=== PATIENT | female | born 1995 | race Caucasian/White ===

== ENCOUNTER 2025-01-14 16:25 | Emergency (ER) | payer OTHER ==
[~2025-01-14] VITALS: Ht 165.1 cm; Wt 99.8 kg
[2025-01-14 16:54] LABS: BASOPHILS ABSOLUTE AUTO 0.02 K/mm3 (0.00-0.23); BASOPHILS PERCENT AUTO 1 % (0-2); EOSINOPHILS ABSOLUTE AUTO 0.13 K/mm3 (0.00-0.68); EOSINOPHILS PERCENT AUTO 3 % (0-6); Hematocrit 36.6 % (33.0-51.0); Hemoglobin 12.3 g/dL (11.5-16.0); IMMATURE GRAN ABSOLUTE AUTO 0.01 K/mm3 (0.00-0.10); IMMATURE GRAN PERCENT AUTO 0 % (0-1); LYMPHOCYTES ABSOLUTE AUTO 1.68 K/mm3 (0.84-5.20); LYMPHOCYTES PERCENT AUTO 41 % (21-46); MONOCYTES ABSOLUTE AUTO 0.40 K/mm3 (0.16-1.47); MONOCYTES PERCENT AUTO 10 % (4-13); Mean Corpuscular HGB Conc 33.6 g/dL (31.5-36.5); Mean Corpuscular Volume 85 fL (80-100); NEUTROPHILS ABSOLUTE AUTO 1.87 K/mm3 (1.96-9.15); NEUTROPHILS PERCENT AUTO 46 % (41-73); NRBC ABSOLUTE 0.00 K/mm3 (0.00-0.02); NRBC Auto 0.0 /100 WBC (0.0-0.2); Platelet Count 297 K/mm3 (150-400); RDW Coefficient Variation 13.2 % (11.7-14.2); RDW Standard Deviation 41.6 fL (35.1-46.3)
[2025-01-14 17:09] LABS: Alanine Aminotransfer (ALT/SGP 27.0 U/L (12-78); Albumin, Blood 3.8 g/dL (3.4-5.0); Albumin/Globulin Ratio 0.8 (0.8-1.8); Anion Gap 7.0 mmol/L (3-11); Aspartate Aminotrans (AST/SGOT 20.0 U/L (12-37); Bilirubin, Total 0.3 mg/dL (0.1-1.0); Blood Urea Nitrogen 9.0 mg/dL (8-24); CO2, Blood 26.0 mmol/L (21-32); Calcium, Blood 9.5 mg/dL (8.5-10.1); Chloride, Blood 105.0 mmol/L (98-108); Creatinine, Blood 0.61 mg/dL (0.40-1.00); Globulin, Blood 4.7 g/dL (2.2-4.0); Glucose, Blood 89.0 mg/dL (70-99); Potassium, Blood 3.8 mmol/L (3.5-5.5); Sodium, Blood 134.0 mmol/L (136-145); Total Protein, Blood 8.5 g/dL (6.4-8.2)
[2025-01-14] MEDS ORDERED: Ketorolac Tromethamine 15mg Vial IV ONE (18:10)
[2025-01-14] MEDS ORDERED: NS 1,000 ML IV SCH (18:10)
== END 2025-01-14 20:50 | disposition home or self-care (01) ==
LOC: ER 16:25
PROVIDERS: Physician Assistant
DX: K76.9 Liver disease, unspecified (principal); R91.1 Solitary pulmonary nodule; J45.909 Unspecified asthma, uncomplicated; K21.9 Gastro-esophageal reflux disease without esophagitis; Z88.7 Allergy status to serum and vaccine
CPT/HCPCS: 71046; 71260; 80053; 83735; 84484; 85025; 85379; 93005; 93010; 96374; 99284-25; J1885; J7030; Q9967

== ENCOUNTER → 2025-02-01 | Outpatient (CLI) | payer OTHER ==
[2025-02-01 20:35] LABS: Bilirubin, Urine Neg (Neg); Glucose Qualitative, Urine Neg (Neg); Ketones, Urine 1+ (Neg); Leukocyte Esterase, Urine Neg (Neg); Protein, Urine Neg (Neg); Specific Gravity, Urine 1.010 (1.003-1.022); Urobilinogen, Urine NORM (Normal)
[2025-02-01 20:36] LABS: Color, Urine Yellow (P-Yellow)
[2025-02-01 21:01] LABS: Creatinine, Urine Random 79.1 mg/dL (27.00-270.00); Protein, Urine Random 8.2 mg/dL (0.0-11.9); Protein/Creat Ratio, Ur Random 0.1
== END ==
LOC: LAB 17:24 → LAB SHORT 17:24
DX: M32.13 Lung involvement in systemic lupus erythematosus (principal)
CPT/HCPCS: 81003; 82570; 84156

== ENCOUNTER 2025-02-21 17:31 | Emergency (ER) | payer OTHER ==
[~2025-02-21] VITALS: Ht 165.1 cm; Wt 90.7 kg
[2025-02-21 18:51] LABS: BASOPHILS ABSOLUTE AUTO 0.03 K/mm3 (0.00-0.23); BASOPHILS PERCENT AUTO 1 % (0-2); EOSINOPHILS ABSOLUTE AUTO 0.12 K/mm3 (0.00-0.68); EOSINOPHILS PERCENT AUTO 3 % (0-6); Hematocrit 35.8 % (33.0-51.0); Hemoglobin 12.1 g/dL (11.5-16.0); IMMATURE GRAN ABSOLUTE AUTO 0.01 K/mm3 (0.00-0.10); IMMATURE GRAN PERCENT AUTO 0 % (0-1); LYMPHOCYTES ABSOLUTE AUTO 1.95 K/mm3 (0.84-5.20); LYMPHOCYTES PERCENT AUTO 41 % (21-46); MONOCYTES ABSOLUTE AUTO 0.38 K/mm3 (0.16-1.47); MONOCYTES PERCENT AUTO 8 % (4-13); Mean Corpuscular HGB Conc 33.8 g/dL (31.5-36.5); Mean Corpuscular Volume 86 fL (80-100); NEUTROPHILS ABSOLUTE AUTO 2.27 K/mm3 (1.96-9.15); NEUTROPHILS PERCENT AUTO 48 % (41-73); NRBC ABSOLUTE 0.00 K/mm3 (0.00-0.02); NRBC Auto 0.0 /100 WBC (0.0-0.2); Platelet Count 276 K/mm3 (150-400); RDW Coefficient Variation 13.4 % (11.7-14.2); RDW Standard Deviation 41.9 fL (35.1-46.3)
[2025-02-21 19:41] LABS: Alanine Aminotransfer (ALT/SGP 32.0 U/L (12-78); Albumin, Blood 4.0 g/dL (3.4-5.0); Albumin/Globulin Ratio 1.0 (0.8-1.8); Anion Gap 7.0 mmol/L (3-11); Aspartate Aminotrans (AST/SGOT 18.0 U/L (12-37); Bilirubin, Total 0.4 mg/dL (0.1-1.0); Blood Urea Nitrogen 6.0 mg/dL (8-24); CO2, Blood 26.0 mmol/L (21-32); Calcium, Blood 9.3 mg/dL (8.5-10.1); Chloride, Blood 105.0 mmol/L (98-108); Creatinine, Blood 0.56 mg/dL (0.40-1.00); Globulin, Blood 4.2 g/dL (2.2-4.0); Glucose, Blood 82.0 mg/dL (70-99); Potassium, Blood 3.5 mmol/L (3.5-5.5); Sodium, Blood 134.0 mmol/L (136-145); Total Protein, Blood 8.2 g/dL (6.4-8.2)
[2025-02-21] MEDS ORDERED: ACET500 PO (20:05)
[2025-02-21] MEDS ORDERED: IBUP600 PO (20:05)
== END 2025-02-21 20:38 | disposition home or self-care (01) ==
LOC: ER 17:31
PROVIDERS: Student in an Organized Health Care Education/Training Program
DX: R07.9 Chest pain, unspecified (principal); M32.9 Systemic lupus erythematosus, unspecified; Z88.7 Allergy status to serum and vaccine
CPT/HCPCS: 71046; 80053; 84484; 85025; 93005; 93010; 99285-25

== ENCOUNTER → 2025-03-14 | Outpatient (CLI) | payer OTHER ==
[~2025-03-14] MED LIST: ACET500 PO; IBUP600 PO
[2025-03-14 14:21] LABS: Hematocrit 37.4 % (33.0-51.0); Hemoglobin 12.1 g/dL (11.5-16.0); Mean Corpuscular HGB Conc 32.4 g/dL (31.5-36.5); Mean Corpuscular Volume 87 fL (80-100); NRBC ABSOLUTE 0.00 K/mm3 (0.00-0.02); NRBC Auto 0.0 /100 WBC (0.0-0.2); Platelet Count 290 K/mm3 (150-400); RDW Coefficient Variation 13.4 % (11.7-14.2); RDW Standard Deviation 42.9 fL (35.1-46.3)
[2025-03-14 16:06] LABS: Alanine Aminotransfer (ALT/SGP 43.0 U/L (12-78); Albumin, Blood 3.7 g/dL (3.4-5.0); Albumin/Globulin Ratio 0.9 (0.8-1.8); Anion Gap 10.0 mmol/L (3-11); Aspartate Aminotrans (AST/SGOT 18.0 U/L (12-37); Bilirubin, Total 0.4 mg/dL (0.1-1.0); Blood Urea Nitrogen 7.0 mg/dL (8-24); CO2, Blood 24.0 mmol/L (21-32); Calcium, Blood 9.1 mg/dL (8.5-10.1); Chloride, Blood 105.0 mmol/L (98-108); Creatinine, Blood 0.59 mg/dL (0.40-1.00); Globulin, Blood 4.2 g/dL (2.2-4.0); Glucose, Blood 103.0 mg/dL (70-99); Potassium, Blood 3.8 mmol/L (3.5-5.5); Sodium, Blood 135.0 mmol/L (136-145); Total Protein, Blood 7.9 g/dL (6.4-8.2)
== END | disposition home or self-care (01) ==
LOC: LAB SHORT 10:05 → LAB 10:05
DX: M32.13 Lung involvement in systemic lupus erythematosus (principal)
CPT/HCPCS: 80053; 85027